=== PATIENT | female | born 1970 | race Hispanic/Latino ===

== ENCOUNTER → 2019-05-10 | Outpatient (CLI) | payer BC ==
--- NOTE | 2019-05-10 17:26 | Diagnostic Imaging Report ---
EXAM: KNEE RIGHT THREE VIEWS DATE: 05/10/2019 4:53 PM INDICATION: Right knee pain COMPARISON: None FINDINGS: There is no evidence for acute fracture or dislocation. Bony mineralization is within normal limits. No focal lytic or blastic abnormality is identified. The joint spaces are maintained. The surrounding soft tissues are unremarkable without evidence for radiopaque foreign body. IMPRESSION: No acute radiographic abnormality identified within the right knee. Signed by: Dr. Thor Hernandez MD on 05/10/2019 5:21 PM
== END ==
LOC: RAD 16:39
PROVIDERS: ATTEND Family Medicine
DX: M25.561 Pain in right knee (principal)